=== PATIENT | male | born 1975 | race Caucasian/White ===

== ENCOUNTER 2017-11-30 14:48 | Emergency (ER) | payer OTHER ==
[2017-11-30 14:59] VITALS: BP 159/91
--- NOTE | 2017-11-30 15:25 | EDPHY ---
General Time Seen by Provider: 11/30/17 15:13 Narrative: CHIEF COMPLAINT: Stung by an insect , swelling short of breath HISTORY OF PRESENT ILLNESS: Patient presents with complaints feeling that he was stung by a bee on the right side of the neck. He this evening. He says that he was able to the stinger himself. He says that he has developed some swelling of the neck that is cross midline, some mild shortness of breath. No chest pain. No systemic rash. No difficulty breathing or swallowing. No drooling. No difficulty opening closing his mouth. No previous anaphylaxis or known allergies to insect. No other associated complaints or modifying factors REVIEW OF SYSTEMS: 10 systems were reviewed and negative with the exception of the elements mentioned in the history of present illness. SPECIALISTS: None PAST MEDICAL HISTORY: Uncomplicated PAST SURGICAL HISTORY: No recent surgical history SOCIAL HISTORY: Nonsmoker. Lives independently. Works here as computer network specialist FAMILY HISTORY: Noncontributory EXAMINATION: General Appearance: Alert, no distress Head: normocephalic, atraumatic Eyes: Pupils equal and round, no conjunctival pallor or injection ENT, Mouth: Mucous membranes moist. Uvula is midline. Airway is widely patent. No swelling of the lips, tongue or posterior pharynx. There is no drooling or trismus. Neck: Normal inspection, supple, non-tender. There is mild tenderness of the anterior portion of the neck. I do not appreciate any crepitus. Trachea is midline. Respiratory: Lungs are clear to auscultation Cardiovascular: Regular rate and rhythm. No murmur Skin: Warm and dry, no rash Extremities: Nontender, no pedal edema Psychiatric: Mood and affect normal DIFFERENTIAL DIAGNOSES: Including but not limited to anaphylaxis, insect sting, allergic reaction, globus pallidus MDM: 3:20 p.m. Possible vector inoculation with feeling of swelling of the neck. He has had some itching. No difficulty swallowing or breathing. Mild shortness of breath. No drooling. His airway is widely patent. There is no rash or evidence of anaphylaxis. He has been taking Benadryl and topical antihistamine. I do feel he warrants short course of steroid therapy, ongoing oral antihistamine therapy. We discussed ED precautions. I do not feel he warrants any epinephrine and I do not feel there is any evidence of anaphylaxis. Discharged home stable condition. SUPERVISION: This patient was independently evaluated without direct involvement of or examination by the attending physician. - History Smoking Status: Former smoker - Objective Vital Signs: Initial Vital Signs Temperature (C) 97.3 F 11/30/17 14:57 Heart Rate 72 11/30/17 14:57 Respiratory Rate 20 11/30/17 14:57 Blood Pressure 159/91 H 11/30/17 14:57 O2 Sat (%) 100 11/30/17 14:57 O2 Delivery Mode Room Air Allergies/Adverse Reactions: silver Allergy (Uncoded 11/30/17 14:56) Home Medications: Medication Instructions Recorded Dexamethasone [Decadron 4 MG (*)] 8 mg PO DAILY #4 tab 11/30/17 Departure - Departure Disposition: Home, Routine, Self-Care Clinical Impression: Insect sting Qualifiers: Encounter type: initial encounter Injury intent: accidental or unintentional Qualified Code(s): T63.481A - Toxic effect of venom of other arthropod, accidental (unintentional), initial encounter Allergic reaction Qualifiers: Encounter type: initial encounter Qualified Code(s): T78.40XA - Allergy, unspecified, initial encounter Condition: Good Instructions: Insect Bite or Sting (ED) Additional Instructions: 1. Benadryl over the counter every 6-8 hours as needed 2. Pepcid 20 mg [id number] twice daily as needed 3. ED precautions for swelling of the lips, tongue, face, to swab, chest pain Referrals: Sharif Castaneda DO [Medical Doctor] - As per Instructions Prescriptions: Dexamethasone [Decadron 4 MG (*)] 8 mg PO DAILY #4 tab
== END 2017-11-30 15:45 | disposition home or self-care (01) ==
DX: T63.441A Toxic effect of venom of bees, accidental (unintentional), initial encounter (principal)